=== PATIENT | male | born 1990 | race Asian ===

== ENCOUNTER 2016-10-03 22:54 | Emergency (ER) | payer OTHER ==
[~2016-10-03] VITALS: Ht 182.9 cm; Wt 56.8 kg
[2016-10-03] MEDS ORDERED: ALPR0.5T8 PO (23:09)
[2016-10-04 00:24] LABS: APPEARANCE,URINE CLEAR (CLEAR); GLUCOSE, URINE (UA) NEGATIVE (NEGATIVE); KETONES,URINE NEGATIVE (NEGATIVE); LEUKOCYTE ESTERASE ,URINE NEGATIVE (NEGATIVE); OCCULT BLOOD,URINE NEGATIVE (NEGATIVE); PROTEIN,URINE NEGATIVE (NEGATIVE)
[2016-10-04 00:25] LABS: ADD UA MICROSCOPIC NO
[2016-10-04] MEDS ORDERED: PERTUSS(ACELL),DIPH,TET VAC/PF 0.5 ML VIAL IM ONE (01:15)
[2016-10-04 01:25] VITALS: BP 125/73
== END 2016-10-04 01:29 | disposition home or self-care (01) ==
LOC: EMS 22:57
DX: S70.02XA Contusion of left hip, initial encounter (principal); Z79.899 Other long term (current) drug therapy; W18.30XA Fall on same level, unspecified, initial encounter; Y93.89 Activity, other specified; Y92.89 Other specified places as the place of occurrence of the external cause; Y99.8 Other external cause status
CPT/HCPCS: 73503; 90471; 90715; 99285